=== PATIENT | female | born 1965 | race Caucasian/White ===

== ENCOUNTER 2016-07-28 22:04 | Emergency (ER) | payer OTHER ==
[2016-07-28 22:21] LABS: BASOPHIL COUNT 0.1 K/uL (0-0.1); EOSINOPHIL (%) 1.3 % (0-5); EOSINOPHIL COUNT 0.2 K/uL (0-0.3); IMMATURE GRANULOCYTE COUNT 0.2 K/uL; LYMPHOCYTE COUNT 6.1 K/uL (1.0-2.8); MCH 29.7 PG (29.0-34.0); MEAN PLAT.VOLUME 9.5 uM^3 (9.5-12.4); MONOCYTE COUNT 1.2 K/uL (0-0.8); NEUTROPHIL (%) 53.8 % (45-76); PLATELET COUNT 310 K/uL (156-360); RED BLOOD COUNT 4.89 M/uL (3.80-5.20); WHITE BLOOD COUNT 16.7 K/uL (4.1-10.2)
[2016-07-28 22:33] LABS: AMYLASE 43 IU/L (1-118); CHLORIDE 106 mEq/L (99-109); POTASSIUM 3.5 mEq/L (3.7-5.4); SODIUM 137 mEq/L (136-147)
[2016-07-28 22:35] LABS: GLUCOSE 113 mg/dL (70-99)
[2016-07-28 22:36] LABS: ANION GAP 11 MEQ/L (2-14)
[2016-07-28 22:38] LABS: SERUM ETHYL ALCOHOL < 10 mg/dL
[2016-07-28 22:39] LABS: UREA NITROGEN (BUN) 15 mg/dL (9-23)
[2016-07-28 22:41] LABS: LIPASE 23 U/L (1.0-51.0)
[2016-07-28 22:43] LABS: GFR ESTIMATE (CALCULATED) > 59 mL/min/
[2016-07-28 22:47] LABS: QUANTITATIVE HCG < 4.0 MIU/ML
[2016-07-28] MEDS ORDERED: FLEXERIL5 MG PO (23:19)
[2016-07-28] MEDS ORDERED: MOTRIN800 MG PO (23:19)
[2016-07-28] MEDS ORDERED: PERCOCET 5/31 TABLET PO (23:19)
== END 2016-07-29 02:11 | disposition home or self-care (01) ==
LOC: TRA 22:04
PROVIDERS: Emergency Medicine
DX: S43.004A Unspecified dislocation of right shoulder joint, initial encounter (principal); V23.4XXA Motorcycle driver injured in collision with car, pick-up truck or van in traffic accident, initial encounter; Z23 Encounter for immunization
CPT/HCPCS: 70450; 71010; 72125; 73020; 73030; 80048; 81003; 82150; 83690; 84702; 85025; 86900; 86901; 99281; 99285; G0480; J2405; J3010